=== PATIENT | female | born 1975 | race Caucasian/White ===

== ENCOUNTER 2020-11-04 04:08 | Emergency (ER) | payer OTHER ==
[~2020-11-04] VITALS: Ht 167.6 cm; Wt 113.0 kg
[2020-11-04] MEDS ORDERED: ONDANSETRON HCL 4MG/2ML INJ IV STA (06:32)
[2020-11-04] MEDS ORDERED: MORPHINE SULFATE 4 MG/ML CPJ (NOT FOR IM USE) IV STA (06:32)
[2020-11-04] MEDS ORDERED: SODIUM CHLORIDE 0.9% 1,000 ML IV ONE (06:45)
[2020-11-04 07:26] LABS: BASOPHILS % 0.7 % (0.0-2.0); EOSINOPHILS % 0.3 % (0.0-5.0); HEMATOCRIT. 38.1 % (36.0-48.0); HEMOGLOBIN. 12.9 g/dL (12.0-16.0); LYMPHOCYTES % 9.3 % (20.0-50.0); MEAN CORPUSCULAR HEMOGLOBIN 28.2 pg (28.0-32.0); MEAN CORPUSCULAR VOLUME 83.6 fL (81.0-99.0); MEAN PLATELET VOLUME 7.5 fl (7.4-10.4); MONOCYTES % 3.6 % (2.0-8.0); NEUTROPHILS % 86.1 % (40.0-76.0); PLATELET 388 x1000/uL (130-400); RED BLOOD CELL COUNT 4.56 mill/uL (4.2-5.4)
[2020-11-04 07:28] LABS: CHLORIDE 109 mEq/L (98-107)
[2020-11-04 07:39] LABS: HCG SCREEN NEGATIVE
[2020-11-04 07:55] LABS: CLARITY URINE CLEAR (CLEAR); COLOR URINE YELLOW (YELLOW); KETONES URINE NEGATIVE (NEGATIVE); LEUKOCYTE ESTERASE URINE NEGATIVE (NEGATIVE); NITRITE URINE NEGATIVE (NEGATIVE); OCCULT BLOOD URINE TRACE (NEGATIVE); PROTEIN URINE NEGATIVE (NEGATIVE); SPECIFIC GRAVITY URINE 1.007 (1.005-1.030); UROBILINOGEN URINE 0.2 E.U./dL (0.2-1.0)
[2020-11-04 11:10] VITALS: BP 122/83
== END 2020-11-04 11:26 | disposition home or self-care (01) ==
LOC: ER 04:08
DX: R33.9 Retention of urine, unspecified (principal); D25.9 Leiomyoma of uterus, unspecified; Z88.1 Allergy status to other antibiotic agents
CPT/HCPCS: 36415; 74176; 80053; 81003; 81025; 83690; 84703; 85025; 87086; 96360; 99285; J7030; A4315